=== PATIENT | female | born 1935 | race Caucasian/White ===

== ENCOUNTER 2016-08-07 09:38 | Outpatient (CLI) ==
[2015-10-30 08:24] VITALS: BMI 25.0
[2016-08-07 10:00] LABS: FLU INTERNAL QC INTERNAL QC VALID; RAPID FLU A NEGATIVE (NEGATIVE); RAPID FLU B NEGATIVE (NEGATIVE)
== END 2016-08-07 09:39 | disposition home or self-care (01) ==
LOC: NONPT 09:38
PROVIDERS: ATTEND Family Medicine
DX: J11.1 Influenza due to unidentified influenza virus with other respiratory manifestations (principal)
CPT/HCPCS: 87804

== ENCOUNTER 2016-09-01 19:08 | Outpatient (CLI) ==
[2015-10-30 08:24] VITALS: BMI 25.0
[2016-09-01 19:26] LABS: BILIRUBIN,URINE Negative (NEGATIVE); KETONES,URINE Negative (NEGATIVE); LEUKOCYTE ESTERASE ,URINE 3+ (NEGATIVE); NITRITE,URINE Positive (NEGATIVE); PH,URINE 5.5 (5-9); PROTEIN,URINE 1+ (NEGATIVE); URINE, BLOOD 1+ (NEGATIVE)
[2016-09-01 19:29] LABS: ADD URINE MICROSCOPIC YES
[2016-09-01 19:30] LABS: BACTERIA,URINE 1+ (NOT PRESENT)
== END 2016-09-01 19:09 | disposition home or self-care (01) ==
LOC: NONPT 19:08
PROVIDERS: ATTEND Family Medicine
DX: N39.0 Urinary tract infection, site not specified (principal)
CPT/HCPCS: 81001; 87086; 87186

== ENCOUNTER 2016-09-10 08:15 | Outpatient (CLI) ==
[2015-10-30 08:24] VITALS: BMI 25.0
[2016-09-10 08:50] VITALS: BP 144/88; TEMP 99.3
[2016-09-10] MEDS ORDERED: INFED 1,000 MG in SODIUM CHLORIDE 500 ML IV STA (08:50)
== END 2016-09-10 08:16 | disposition home or self-care (01) ==
LOC: OPMED 08:15
PROVIDERS: ATTEND Family Medicine
DX: D50.9 Iron deficiency anemia, unspecified (principal); K90.9 Intestinal malabsorption, unspecified
CPT/HCPCS: 96366; 96374

== ENCOUNTER 2016-09-10 13:42 | Emergency (ER) ==
[2016-09-10 13:57] VITALS: BP 156/85; TEMP 101.2; BMI 25.9
--- NOTE | 2016-09-10 14:04 | ED.PDOC ---
General ED Provider: Dr. OLU GARCIA JR Chief Complaint: Cough Stated Complaint: Seen for OP iron infusion. Brought to ER for cough for past couple days. Instructed to be eval here per instructions [facility]. Has temp 101.2 in triage. Has been receiving antibiotic for UTI at [place]. [ End ]2 DAYS CPR ONLY 101.2 107 20 93% 156/85. HTN CA ANEM CHF AFIB KD ARTH. Seen for OP iron infusion. Brought to ER for cough for past couple days. Instructed to be eval here per instructions [facility]. Has temp 101.2 in triage. Has been receiving antibiotic for UTI at [place]. [ End ] Time Seen by Physician: 13:50 Mode of Arrival: Wheelchair Information Source: Patient, Family Exam Limitations: Clinical condition Primary Care Provider: BAM TAYLOR Nursing and Triage Documentation Reviewed and Agree: No Review of Systems - Review Of Systems Constitutional: Reports: Fever, Malaise, Weakness, Loss of appetite Eyes: Reports: No symptoms Ears, Nose, Mouth, Throat: Reports: No symptoms Respiratory: Reports: Cough Cardiac: Reports: No symptoms GI: Reports: No symptoms : Reports: No symptoms Musculoskeletal: Reports: Other Skin: Reports: No symptoms Neurological: Reports: No symptoms Endocrine: Reports: No symptoms Hematologic/Lymphatic: Reports: No symptoms All Other Systems: Other Past Medical History - Past Medical History Previously Healthy: Yes Endocrine: Reports: None Cardiovascular: Reports: Hypertension, CHF, A-Fib Respiratory: Reports: None Hematological: Reports: Anemia Gastrointestinal: Reports: None Genitourinary: Reports: CKD Neuro/Psych: Reports: None Musculoskeletal: Reports: Arthritis Cancer: Reports: Unknown Last Menstrual Period: hysterectomy Other Pertinent Past Medical History: LEG WOUND - Surgical History General Surgical History: Reports: Hysterectomy, Appendectomy, Orthopedic - Family History Family History: Reports: Unknown - Social History Smoking Status: Never smoker Hx Substance Use: No Alcohol Screening: None Physical Exam - Physical Exam Appearance: Ill-appearing Ill-appearing: Mild Pain Distress: Mild Eyes: FLO, EOMI, Conjunctiva clear ENT: Ears normal, Nose normal, Oropharynx normal Neck: Supple Respiratory: Airway patent, Breath sounds diminished, Crackles Cardiovascular: RRR, Pulses normal, No rub, No murmur Neurological: Alert, Oriented Psychiatric: Affect appropriate Critical Care Note - Critical Care Note Total Time (mins): 0 Course - Course Hematology/Chemistry: 09/10/16 14:35 09/10/16 14:35 Orders, Labs, Meds: Lab Review 09/10/16 14:35 WBC 7.30 RBC 3.56 L Hgb 10.5 L Hct 33.7 L MCV 94.7 MCH 29.5 MCHC 31.2 L RDW Coeff of Fan 15.4 H Plt Count 164 Immature Gran % (Auto) 0.4 Neut % (Auto) 74.5 Lymph % (Auto) 15.2 Trigg % (Auto) 8.9 Eos % (Auto) 0.5 Baso % (Auto) 0.5 Immature Gran # (Auto) 0.0 Neut # 5.4 Lymph # 1.1 Trigg # 0.7 Eos # 0.0 Baso # 0.0 D-Dimer 3.28 Sodium 141 Potassium 4.0 Chloride 108 H Carbon Dioxide 26 Anion Gap 11.0 BUN 17 Creatinine 0.75 Estimated GFR (MDRD) 74.00 BUN/Creatinine Ratio 22.66 Glucose 95 Calcium 9.0 Total Bilirubin 0.29 AST 29 ALT 38 Alkaline Phosphatase 46 L B-Natriuretic Peptide 347 H Total Protein 5.9 Albumin 2.7 L Globulin 3.2 Albumin/Globulin Ratio 0.84 TSH 1.198 Orders Category Date Time Status Catheter [ED CATHETER INSERTION AND CARE] .ONCE EMERGENCY 09/10/16 17:00 Active B-TYPE NATRIURETIC PEPTIDE Stat LAB 09/10/16 14:35 Completed BLOOD CULTURE Stat LAB 09/10/16 15:30 Received CBC W/ AUTO DIFF Stat LAB 09/10/16 14:35 Completed COMPREHENSIVE METABOLIC PANEL Stat LAB 09/10/16 14:35 Completed D-DIMER Stat LAB 09/10/16 14:35 Completed THYROID STIMULATING HORMONE Stat LAB 09/10/16 14:35 Completed URINALYSIS C & S IF INDICATED Stat LAB 09/10/16 17:00 Uncollected Levofloxacin/D5w [Levaquin] 150 ml MEDS 09/10/16 15:29 Discontinued IV .STK-MED Levofloxacin/D5w [Levaquin] 750 mg MEDS 09/10/16 15:19 Discontinued Premix 150 ml D5w 1 bag IV ONCE Lidocaine HCl [Uro-Jet] MEDS 09/10/16 17:00 Discontinued 10 ml [email or web address] ONCE STA CHEST, 1V AP ONLY Stat RADS 09/10/16 13:58 Completed Medications Discontinued Medications Generic Name Dose Route Start Last Admin Trade Name Freq PRN Reason Stop Dose Admin Levofloxacin/Dextrose 750 mg/ 150 mls @ 100 mls/hr 09/10/16 15:19 09/10/16 15 :46 Dextrose IV 09/10/16 16:48 100 mls/hr ONCE STA Administration Lidocaine HCl 10 ml 09/10/16 17:00 Uro-Jet [email or web address] 09/10/16 17:01 ONCE STA Vital Signs: Temp Pulse Resp BP Pulse Ox 09/10/16 13:42 101.2 F H 107 H 20 156/85 H 93 L Departure - Departure Time of Disposition: 14:32 Disposition: TRANSFER SNF Discharge Problem: Chronic UTI (urinary tract infection) Pneumonia Qualifiers: Pneumonia type: due to unspecified organism Laterality: bilateral Lung location : lower lobe of lung Qualifier Code: (J18.9) Pneumonia, unspecified organism Instructions: Pneumonia (ED), Urinary Tract Infection in Women (ED) Condition: Stable Pt referred to PMD for follow-up: Yes Additional Instructions: Levaquin given once in ER albuterol nebs four times a day for two days urine culture and blood cultures are pending Prescriptions: Guaifenesin/Dextromethorphan [Robafen-Dm Syrup] 5 ml PO QID #120 ml Allergies/Adverse Reactions: Allergies allopurinol Allergy (Intermediate, Verified 09/10/16 13:53) Hives morphine Allergy (Intermediate, Verified 09/10/16 13:53) Itching Home Medications: Ambulatory Orders Ascorbic Acid [Vitamin C] 500 mg PO DAILY 12/08/13 Calcium Carbonate [Calcium] 500 mg PO DAILY 12/08/13 Cyanocobalamin/Folic Acid [Vitamin V30-Cuczx Acid Tablet] 2,500 mcg PO DAILY Hydrocodone Bit/Acetaminophen [[place] 7.5-325] 0.5 - 1 tab PO 1-2XD PRN 12/08/13 Hydromorphone HCl/Pf [Dilaudid-Hp 10 mg/ml Ampul] 1 12/08/13 Levothyroxine Sodium [Synthroid] 112 mcg PO QDAC 12/08/13 Lovastatin 40 mg PO BEDTIME 12/08/13 Metronidazole [Metrogel] 45 gm TP BID 12/08/13 Multivitamin 1 cap PO DAILY 12/08/13 Omeprazole [Prilosec] 20 mg PO QDAC 12/08/13 Aspirin [Aspirin EC] 81 mg PO DAILYWM 09/10/16 Carvedilol [Coreg] 12.5 mg PO BID 09/10/16 Ceftriaxone Sodium [Rocephin] 1 gm IM DAILY 09/10/16 Cilostazol [Pletal] 100 mg PO BID 09/10/16 Estradiol [Estrace] 42.5 gm VG DAILY PRN 09/10/16 Febuxostat [Uloric] 40 mg PO DAILY 09/10/16 Ferrous Sulfate 325 mg PO DAILY 09/10/16 Guaifenesin/Dextromethorphan [Robafen-Dm Syrup] 5 ml PO QID #120 ml 09/10/16 Loperamide HCl [Loperamide] 2 mg PO BID PRN 09/10/16 Losartan Potassium [Cozaar] 50 mg PO DAILY 09/10/16 Nystatin 15 gm TP Q8HR PRN 09/10/16 Prednisone 15 mg PO DAILYWM 09/10/16 Pyridoxine HCl [Vitamin B-6] 100 mg PO DAILY 09/10/16 Saccharomyces Boulardii [Florastor] 250 mg PO DAILY 09/10/16 Vitamin E 100 unit PO DAILY 09/10/16 Vitamin E Mixed [Vitamin E] 400 unit PO DAILY 09/10/16
--- NOTE | 2016-09-10 14:23 | DI ---
EXAM: CHEST FRONTAL VIEW HISTORY: Cough, fever. COMPARISON: 07/13/2011 FINDINGS: Borderline enlarged heart size is stable. There is mild to moderate aortic atheroscleros is. Low lung volumes. Probable mild bibasilar consolidation. Prominent right hilar shadow. No de finite active congestive heart failure is suggested. No visible pleural fluid or pneumothorax. IMPRESSION: 1. Cannot exclude mild basilar pneumonia. 2. Prominent right hilar shadow. Consider follow-up standing full inspiration PA and lateral chest radiography for clarification.
[2016-09-10 14:44] LABS: BASOPHILS % (AUTO) 0.5 % (0.0-3.0); EOSINOPHILS % (AUTO) 0.5 % (0.0-7.0); HEMATOCRIT 33.7 % (37.0-47.0); HEMOGLOBIN 10.5 g/dl (12.0-16.0); IMMATURE GRANULOCYTE % (AUTO) 0.4 % (0.0-5.0); LYMPHOCYTES # (AUTO) 1.1 K/uL (0.60-3.4); LYMPHOCYTES % (AUTO) 15.2 (10.0-50.0); MEAN CORPUSCULAR HEMOGLOBIN 29.5 pg (27.0-31.0); MEAN CORPUSCULAR HGB CONC 31.2 (31.8-35.4); MEAN CORPUSCULAR VOLUME 94.7 fl (81.0-99.0); MONOCYTES # (AUTO) 0.7 K/uL (0.4-2.0); MONOCYTES % (AUTO) 8.9 (0-10); NEUTROPHILS # (AUTO) 5.4 K/ul (2.0-6.9); NEUTROPHILS % (AUTO) 74.5; PLATELET COUNT 164 10^3/uL (140-440); RED BLOOD COUNT 3.56 10^6/ul (4.20-5.40)
[2016-09-10] MEDS ORDERED: LEVAQUIN 750 MG in PREMIX 150 ML D5W 1 BAG IV STA (15:19)
[2016-09-10 15:23] LABS: ALBUMIN 2.7 g/dL (3.4-5.0); ALBUMIN/GLOBULIN RATIO 0.84; BILIRUBIN,TOTAL 0.29 mg/dL (0.00-1.20); BUN/CREATININE RATIO 22.66; CREATININE 0.75 mg/dL (0.60-1.30); TOTAL PROTEIN 5.9 g/dL (5.8-8.1)
[2016-09-10] MEDS ORDERED: LEVAQUIN 150 ML IV ONE (15:29)
[2016-09-10] MEDS ORDERED: URO-JET MUCOUSMEMB STA (17:00)
[2016-09-10 17:13] LABS: BILIRUBIN,URINE Negative (NEGATIVE); KETONES,URINE Negative (NEGATIVE); LEUKOCYTE ESTERASE ,URINE Trace (NEGATIVE); NITRITE,URINE Negative (NEGATIVE); PH,URINE 5.5 (5-9); PROTEIN,URINE Negative (NEGATIVE); URINE, BLOOD 1+ (NEGATIVE)
[2016-09-10 17:16] LABS: ADD URINE MICROSCOPIC YES
[2016-09-10 17:20] LABS: BACTERIA,URINE TRACE (NOT PRESENT)
== END 2016-09-10 17:25 ==
LOC: ED 13:42
DX: N39.0 Urinary tract infection, site not specified (principal); J18.9 Pneumonia, unspecified organism; I10 Essential (primary) hypertension; I48.91 Unspecified atrial fibrillation; I50.9 Heart failure, unspecified; N18.9 Chronic kidney disease, unspecified; M19.90 Unspecified osteoarthritis, unspecified site; Z79.899 Other long term (current) drug therapy; D50.9 Iron deficiency anemia, unspecified; K90.9 Intestinal malabsorption, unspecified
CPT/HCPCS: 36415; 80053; 81001; 83880; 84443; 85025; 85379; 87040; 87086; 96365; 96366; 96374; 99283

== ENCOUNTER 2016-10-22 03:37 | Outpatient (CLI) | END 2016-10-22 03:38 | disposition home or self-care (01) | LOC: AMBL 03:37 | PROVIDERS: ATTEND Family Medicine | DX: K92.1 Melena (principal); R00.0 Tachycardia, unspecified ==

== ENCOUNTER 2016-11-05 05:55 | Outpatient (CLI) ==
[2016-11-05 06:11] LABS: ADD URINE MICROSCOPIC YES; BILIRUBIN,URINE Negative (NEGATIVE); KETONES,URINE Negative (NEGATIVE); LEUKOCYTE ESTERASE ,URINE Negative (NEGATIVE); NITRITE,URINE Negative (NEGATIVE); PH,URINE 5.5 (5-9); PROTEIN,URINE Negative (NEGATIVE); URINE, BLOOD Negative (NEGATIVE)
[2016-11-05 06:12] LABS: BACTERIA,URINE 1+ (NOT PRESENT)
== END 2016-11-05 05:56 | disposition home or self-care (01) ==
LOC: LAB 05:55
PROVIDERS: ATTEND Family Medicine
DX: R41.0 Disorientation, unspecified (principal)
CPT/HCPCS: 81001; 87086